=== PATIENT | male | born 1955 | race Caucasian/White ===

== ENCOUNTER → 2016-05-12 | Day surgery (SDC) | payer OTHER ==
[~2016-05-12] MED LIST: CELE10TA9 PO; CLINDAMYCIN PHOS 600 MG/4 ML VIAL ONE; CLON.5 PO; LACTATED RINGER'S 1000 ML INJ 1,000 ML ONE; NEXI20CA PO
== END | disposition home or self-care (01) ==
LOC: ESDC 12:56
PROVIDERS: ATTEND Surgery
DX: R22.2 Localized swelling, mass and lump, trunk (principal)
CPT/HCPCS: 99211; G0463; J7120